=== PATIENT | female | born 1960 | race Caucasian/White ===

== ENCOUNTER 2018-04-15 11:08 | Emergency (ER) | payer OTHER, SELFPAY ==
[2018-04-15 11:10] VITALS: BP 205/121; PULSE 109; RESP 17; TEMP 37.2; O2SAT 95; BMI 34.9
[2018-04-15] MEDS: Ketorolac 60 MG/2 ML Vial IM (11:49)
[2018-04-15] MEDS: Orphenadrine 60 MG/2 ML Ampul IM (11:50)
[2018-04-15 12:45] VITALS: BP 222/103; PULSE 87; RESP 17; O2SAT 96
--- NOTE | 2018-04-15 12:46 | ED.VISSUMM ---
- ER Visit Summary Date of Service: 04/15/18 Chief Complaint: [back pain] History of Present Illness: The patient is a 57 F [that presents with right-sided back pain that radiates down the back of her right leg for approximately 1 week. She describes pain that is worse with movement and sitting and better with standing and remaining still. She denies any bowel or bladder incontinence or retention. No symptoms of saddle anesthesia. She denies any fall or trauma. She has a history of prior similar back pain. She does not take any blood thinning medications. She overall appears well and nontoxic. She has no other complaints.] Physical Examination: [General: The patient appears well and in no apparent distress. Patient is resting comfortably on cart. Skin: Warm, dry, no pallor noted. No rash. Head: Normocephalic, atraumatic Neck: Supple, nontender. Eye: PERRLA, EOMI Cardiovascular: Regular Rate and Rhythm, no gallups or rubs Respiratory: Patient is in no distress, no accessory muscle use, lungs are clear to auscultation, no wheezing, rales or rhonchi Musculoskeletal: normal ROM, no deformity, no tenderness, no swelling. 2+ radial and DP pulses symmetric. Back: No spinal tenderness. Right paraspinal lumbar tenderness only. GI: No tenderness to palpation, no masses appreciated. No rebound, guarding, or rigidity noted. Neurological: A&O, normal strength and sensation. 5/5 lower extremity strength intact. Sensation normal. Gait normal. Psychiatric: Cooperative] Test Results: [] Emergency Department Course and Treatment: [Patient was given intramuscular injections of Toradol and Norflex with improvement of symptoms. On reevaluation at 1225 is standing at bedside and states she feels improved. Neurological exam remains normal. Her blood pressure was elevated here at 225/121. This did improve on the diastolic portion while she was here in the emergency department. Patient admits that she forgot to take her blood pressure medications today and she took them today only right before she came in. She has no symptoms associated with her blood pressure here. She recently had her blood pressure medications adjusted as her physician is attempting to better control her blood pressure. She was advised to follow it closely today, she states she has machine at home. She was instructed to return with any new or worsening symptoms and follow closely with her primary provider regarding her back pain as well for her blood pressure. We discussed signs and symptoms to return with. Patient verbalized understanding. Patient discharged home in stable and improved condition.] Treatment Plan: [see above] Disposition: [discharge home, stable and improved condition] Impression: [Acute lumbosacral strain with radiculopathy, elevated blood pressure, history of HTN] This note was generated with i[employer] dictation software. It may contain incorrect words, spelling, and punctuation that were not noted in review of the chart prior to signing ED Disposition - Plan for ED Patient: Disposition: Home or Assisted Living Chief Complaint: Back Instructions: ED Sciatica Prescriptions: Cyclobenzaprine [Flexeril] 10 mg PO TID PRN #20 tab PRN Reason: Muscle Spasm Referrals: Remi Toth [Primary Care Provider] -
[2018-04-15 12:59] VITALS: PULSE 87; RESP 17; O2SAT 96
== END 2018-04-15 13:00 | disposition home or self-care (01) ==
PROVIDERS: Emergency Provider Emergency Medicine; Family Provider Family Medicine; PCP Family Medicine
DX: S39.012A Strain of muscle, fascia and tendon of lower back, initial encounter (principal); M54.16 Radiculopathy, lumbar region; X58.XXXA Exposure to other specified factors, initial encounter; Y93.9 Activity, unspecified; Y92.9 Unspecified place or not applicable; I10 Essential (primary) hypertension; E66.9 Obesity, unspecified; E11.9 Type 2 diabetes mellitus without complications; Z79.84 Long term (current) use of oral hypoglycemic drugs; Z79.899 Other long term (current) drug therapy; Z72.0 Tobacco use
CPT/HCPCS: 96372; 99282

== ENCOUNTER 2019-07-11 13:45 | Inpatient (IN) | payer OTHER, SELFPAY ==
[2019-07-11] VITALS (11 sets, daily range): BP systolic 111–160; BP diastolic 35–84; PULSE 102–124; RESP 14–32; TEMP 36.8–37.1; O2SAT 94–100; BMI 35.4; BMI 34.4
[2019-07-11] MEDS: Ipratropium/Albuterol Sulfate 3 ML AMPUL.NEB INHALATION ×3 (14:58→23:30)
[2019-07-11] MEDS: 0.9% Normal Saline 1,000 ML 1000 ML IV (15:50)
[2019-07-11] MEDS: Ondansetron 4 MG/2 ML Vial IV (15:50)
--- NOTE | 2019-07-11 15:55 | RAD_ITS ---
STUDY: X-RAY CHEST REASON FOR EXAM: Female, 58 years old. Productive cough. Fever. Nausea and diarrhea for 5 days. TECHNIQUE: PA and lateral views of the chest. COMPARISON: None. FINDINGS: The lungs are well-expanded. There is bilateral lower lobe infiltrates right greater than left. There is no demonstrated pleural abnormality. Normal size heart. Normal mediastinum and mirella. Normal visualized pulmonary arteries. There is atherosclerotic calcification of the aortic arch with tortuosity. There are diffuse degenerative changes of the visualized thoracic spine. There is degenerative osteoarthritis of the bilateral shoulders. There is no demonstrated abnormality of the visualized soft tissue structures of the upper abdomen. RAD/Chest PA and Lateral IMPRESSION: Bibasilar infiltrates. Electronically Signed: Musa Leyva DO at 16:15 EST Tel [phone], Service support ,
[2019-07-11 16:02] LABS: Absolute Lymphocyte Count 0.64 X10^3/uL (0.83-4.51); Absolute Neutrophil Count 4.9 X10^3/uL (2.0-7.7); Basophil# 0.02 X10^3/uL; Basophil% 0.3 % (0-1); Eosinophil# 0.02 X10^3/uL; Eosinophils% 0.3 % (0-5); Hematocrit 34.4 % (37-47); Hemoglobin 11.7 g/dL (12.0-15.0); Lymphocyte # 0.64 X10^3/ul (4.0); Lymphocyte % 10.9 % (19-41); Mean Corpuscular Hgb 30.2 pg (27.0-32.0); Mean Corpuscular Volume 88.9 fL (81-99); Mean Platelet Vol. 10.8 fl (6.2-12.0); Monocyte# 0.26 X10^3/uL; Monocyte% 4.4 % (0-10); NRBC Flagged by Analyzer 0 % (0-5); Neutrophil # 4.88 X10^3/uL (2.7-7.7); Neutrophil % 83.1 % (47-70); POSITIVE MORPHOLOGY YES; Platelet Count 175 K/mm3 (150-450); RBC Distribution Width CV 12.6 % (11.6-14.6); RBC Distribution Width SD 41.3 fl (35.1-43.9); Red Blood Count 3.87 M/mm3 (4.2-5.4); White Blood Count 5.9 K/mm3 (4.4-11.0)
[2019-07-11 16:20] LABS: Anion Gap 9 (5-15); BUN 43 mg/dL (7-18); BUN/Creat Ratio 45.9 RATIO (10-20); Calcium,Total 8.7 mg/dL (8.5-10.1); Chloride 95 mmol/L (98-107); Creatinine, Serum 0.94 mg/dL (0.55-1.02); EST Glomerular Filtration Rate 65 mL/min (>60); Est Glom Filt Rate - Afr Amer 79 mL/min (>60); Estimated Creatinine Clearance 52.22 ml/min; Glucose 238 mg/dL (74-106); Sodium Level 125 mmol/L (136-145)
[2019-07-11 16:30] LABS: Differential Indicated SCAN CRITERIA MET
--- NOTE | 2019-07-11 16:34 | ED.VISSUMM ---
- ER Visit Summary Date of Service: 07/11/19 Chief Complaint: [Shortness of breath] History of Present Illness: The patient is a 58 F [presents to the emergency department with 5-day history of shortness of breath. Patient's had chills and subjective fever. Patient is coughing and coughing up phlegm at times. Patient states that her mother is ill with similar symptoms. Patient describes decreased urine output and dark urine. Patient also has had nausea and dry heaves. She had a few episodes of diarrhea. Patient has history of diabetes, hypertension, high cholesterol.] Physical Examination: [HEENT-PERRLA, EOMI. Cranial nerves II through XII grossly intact. TMs clear. Mucous membranes dry. No adenopathy. Cardiovascular-regular rate and rhythm without murmur or ectopy Lungs-clear to auscultation, chest wall stable without crepitus or subcu emphysema Abdomen-normoactive bowel sounds, soft, nontender, no rebound or rigidity, no peritoneal signs. Extremities-intact ?4, normal range of motion, normal pulses, atraumatic] Test Results: [CBC with differential obtained showing a 5.9, hemoglobin 11.7, hematocrit 34, platelets 175. Chemistry showed a sodium 125, potassium 4.0, chloride 95, CO2 21, Leukos 238, BUN 43 and creatinine 0.94. Chest x-ray obtained showed bibasilar infiltrates as read by radiology and myself. Urinalysis ordered and pending. Lactate ordered and pending. Blood cultures ordered.] Emergency Department Course and Treatment: [Patient started on normal saline a liter bolus. Patient started on Rocephin and Zithromax IV.] Treatment Plan: [Admit] Disposition: [Admit] Impression: [Bilateral ocesdetbv-[id number]-resldzih Hyponatremia Dehydration] This note was generated with [employer].comation software. It may contain incorrect words, spelling, and punctuation that were not noted in review of the chart prior to signing ED Disposition - Plan for ED Patient: Referrals: Remi Toth [Primary Care Provider] -
--- NOTE | 2019-07-11 16:39 | PCM.HP.STD ---
History of Present Illness The patient is a 58 year old F [] Past Medical History Allergies No Known Allergies Allergy (Verified 07/11/19 13:47) Home Medications: Ambulatory Orders Medication Instructions Recorded Citalopram [Celexa] 10 mg PO DAILY 04/15/18 Diltiazem HCl [Cartia Xt] 180 mg PO DAILY 04/15/18 Glimepiride 1 mg PO DAILY 04/15/18 Lisinopril [Zestril] 20 mg PO BID 04/15/18 Metformin HCl [Glucophage Xr] 1,500 mg PO DAILY 04/15/18 Metoprolol Succinate 100 mg PO DAILY 04/15/18 Simvastatin [Zocor] 10 mg PO QHS 04/15/18 cycloBENZAPRine HCl [Flexeril] 10 mg PO TID PRN #20 tab 04/15/18 Smoking Status: Current every day smoker - Physical Exam Vitals/I&O's: Vital Signs Temp Pulse Resp BP Pulse Ox 98.7 F 107 H 18 155/84 H 96 07/11/19 13:46 07/11/19 14:59 07/11/19 14:59 07/11/19 13:46 07/11/19 13:46 Oxygen Delivery Method Room Air Weight: 194 lb Body Mass Index (BMI) 35.4 Microbiology Past 72 Hours 07/11/19 14:54 Mucosa - Nasopharyngeal Influenza Types A,B Direct FA (ROGE) - Final Laboratory Results 07/11/19 15:44: WBC 5.9, RBC 3.87 L, Hgb 11.7 L, Hct 34.4 L, MCV 88.9, MCH 30.2, MCHC 34.0, RDW Std Deviation 41.3, RDW Coeff of [place] 12.6, Plt Count 175, MPV 10.8, Immature Gran % (Auto) 1.000 H, Neut % (Auto) 83.1 H, Lymph % (Auto) 10.9 L, [place] % (Auto) 4.4, Eos % (Auto) 0.3, Baso % (Auto) 0.3, Absolute Neuts (auto) 4.9, Absolute Lymphs (auto) 0.64 L, Nucleated RBC % 0 07/11/19 15:44: Sodium 125 L, Potassium 4.0, Chloride 95 L, Carbon Dioxide 21.0, Anion Gap 9, BUN 43 H, Creatinine 0.94, Estim Creat Clear Calc 52.22, Est GFR (MDRD) Af Amer 79, Est GFR (MDRD) Non-Af 65, BUN/Creatinine Ratio 45.9 H, Glucose 238 H, Calcium 8.7 Current Medications Azithromycin 500 mg/ Dextrose 255 mls @ 250 mls/hr IV X1 ONE Stop: 07/11/19 17:14 Ceftriaxone Sodium (Rocephin) 1 gm in 50 mls @ 100 mls/hr IV X1 ONE Stop: 07/11/19 16:42
[2019-07-11 16:42] LABS: Bacteria 0 SEEN /hpf (None Seen); Mucous, Urine 0 SEEN /hpf (<or=2+); Red Blood Cells-Urine 0 SEEN /hpf (0-5); Squamous Epithelial Cells - UA 0 SEEN /hpf (5-10); White Blood Cells 0 SEEN /hpf (0-5)
[2019-07-11 16:49] LABS: Color, Urine Yellow (Yellow); Glucose, Dipstick Normal (Normal); Ketone-Dipstick 5 mg/dl (Negative); Leukocyte Esterase-Dipstick Negative /ul (Negative); Nitrite-Dipstick Negative (Negative); Occult Blood-Urine 25 /ul (Negative); Protein-Dipstick 30 mg/dl (Negative); Urine Bilirubin Dipstick Negative (Negative); Urine Clarity Sl. Cloudy (Clear); Urine Urobilinogen 1 mg/dl (Normal); Urine pH 6.5 (5.0 - 8.0)
[2019-07-11 16:53] LABS: Differential Comment SCANNED
--- NOTE | 2019-07-11 17:05 | PCM.HP.STD ---
<Hermila Acuna - Last Filed: 07/11/19 17:36> Problem List (1) HTN (hypertension) Status: Chronic (2) Tobacco dependence Status: Chronic (3) HLD (hyperlipidemia) Status: Chronic (4) Type 2 diabetes mellitus Status: Chronic (5) Depression Status: Chronic History of Present Illness Date of Admission: 07/11/19 Chief Complaint: Shortness of breath, cough, fever/chills. The patient is a 58 year old F who presents to the ER with complaints of shortness of breath, cough, fever and chills. Patient states her symptoms began with fever, chills on Sunday and also reports nasal congestion. She has felt progressively worse since that time. She reports intermittent non-productive cough. Denies sick contacts. She has a 25+ history of smoking and is a current pack per day smoker. She has never been tested for COPD. Patient also reports diarrhea prior to admission and nausea which are currently resolved. She has a past medical history of Type 2 diabetes mellitus, hypertension, hyperlipidemia, depression, tobacco dependence. Past Medical History Past Medical History (Chronic Problems): Chronic Problems HTN (hypertension) (Chronic) Tobacco dependence (Chronic) HLD (hyperlipidemia) (Chronic) Type 2 diabetes mellitus (Chronic) Depression (Chronic) Allergies No Known Allergies Allergy (Verified 07/11/19 13:47) Home Medications: Ambulatory Orders Medication Instructions Recorded Citalopram [Celexa] 10 mg PO DAILY 04/15/18 Metformin HCl [Glucophage Xr] 1,500 mg PO DAILY 04/15/18 Simvastatin [Zocor] 10 mg PO QHS 04/15/18 Aspirin E.C. 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 Denies: Head Aches, Sinus Congestion, Sinus Drainage, Sore Throat Cardiovascular: Denies: Chest Pain, Edema, Light Headedness, Palpitations, Syncope Respiratory: Reports: Cough, Shortness of Breath. Denies: Sputum production Gastrointestinal: Reports: Diarrhea, Nausea. Denies: Abdominal Pain, Vomiting Genitourinary: Denies: Dysuria Musculoskeletal: Denies: Joint Pain, Joint Tenderness Skin: Denies: Rash, Wounds Neurological: Denies: Numbness, Tingling, Focal weakness Psychiatric: Reports: Depression Hematologic/ Lymphatic: Denies: Easy Bruising, Easy Bleeding VTE Information - Inpt Only VTE Present on Admission: No VTE Mechan Device Prophylaxis: None VTE Pharm Prophylaxis ordered?: Yes - Physical Exam Vitals/I&O's: Vital Signs Temp Pulse Resp BP Pulse Ox 98.7 F 102 H 14 129/59 H 95 07/11/19 13:46 07/11/19 16:47 07/11/19 16:47 07/11/19 16:47 07/11/19 16:47 Oxygen Delivery Method Room Air Weight: 194 lb Body Mass Index (BMI) 35.4 General: Alert, Oriented x3, Cooperative HEENT: Atraumatic, PERRLA, EOMI, Normocephalic Oral: Dry Mucosa Neck: Supple, No JVD, Negative Carotid Bruits Lungs: Diminished, - - Crackles BL bases Cardiovascular: Regular Rhythm, Normal S1, Normal S2, No murmurs, Tachycardic Abdomen: Bowel Sounds Present, Soft, Non Tender, Non-Distended, Obese Extremities: No clubbing, No cyanosis, No edema, Capillary Refill Less than 3 Seconds Skin: No rashes, No breakdown Musculoskeletal: No Tenderness to Palpation of Joints or Extremities Neurological: Cranial nerves II-XII grossly intact, Neuro grossly intact Psych/Mental Status: Normal Affect, Appropriate Microbiology Past 72 Hours 07/11/19 14:54 Mucosa - Nasopharyngeal Influenza Types A,B Direct FA (ROGE) - Final Laboratory Results 07/11/19 15:44: WBC 5.9, RBC 3.87 L, Hgb 11.7 L, Hct 34.4 L, MCV 88.9, MCH 30.2, MCHC 34.0, RDW Std Deviation 41.3, RDW Coeff of [place] 12.6, Plt Count 175, MPV 10.8, Immature Gran % (Auto) 1.000 H, Neut % (Auto) 83.1 H, Lymph % (Auto) 10.9 L, [place] % (Auto) 4.4, Eos % (Auto) 0.3, Baso % (Auto) 0.3, Absolute Neuts (auto) 4.9, Absolute Lymphs (auto) 0.64 L, Nucleated RBC % 0, Differential Comment SCANNED 07/11/19 15:44: Sodium 125 L, Potassium 4.0, Chloride 95 L, Carbon Dioxide 21.0, Anion Gap 9, BUN 43 H, Creatinine 0.94, Estim Creat Clear Calc 52.22, Est GFR (MDRD) Af Amer 79, Est GFR (MDRD) Non-Af 65, BUN/Creatinine Ratio 45.9 H, Glucose 238 H, Calcium 8.7 07/11/19 16:30: Urine Color Pending, Urine Clarity Pending, Urine pH Pending, Ur Specific [place] Pending, Urine Protein Pending, Urine Glucose (UA) Pending, Urine Ketones Pending, Urine Occult Blood Pending, Urine Nitrite Pending, Urine Bilirubin Pending, Urine Urobilinogen Pending, Ur Leukocyte Esterase Pending, Urine RBC Pending, Urine WBC Pending, Ur Squamous Epith Cells Pending, Urine Bacteria Pending, Urine Mucus Pending 07/11/19 16:40: Lactic Acid Pending Current Medications Azithromycin 500 mg/ Dextrose 255 mls @ 250 mls/hr IV X1 ONE Stop: 07/11/19 17:14 Assessment/Plan 1. Sepsis secondary to bilateral community acquired pneumonia- CXR with BL infiltrates. Afebrile. No white count. O2 stable on RA. Tachycardic and tachypneic on admission. Lactic acid pending. Continue IV azithromycin and IV Rocephin. Check urine antigens. Send sputum for culture. Albuterol and DuoNeb aerosols. Patient has extensive smoking history. Suspect underlying COPD. Recommend follow up with pulmonary medicine at [place] for formal evaluation. 2. Hypovolemic hyponatremia, secondary to dehydration- IV fluids, trend BMP. 3. Type 2 diabetes mellitus- hold oral regimen. Accucheck ACHS with SSI. Glucose elevated on admission. Check HA1C. 4. Hypertension-stable, continue lisinopril, metoprolol. Hold HCTZ. 5. Hyperlipidemia- continue statin. 6. Depression- continue celexa. 7. Tobacco dependence- encouraged cessation. Nicotine replacement patch. DVT prophylaxis- Lovenox sc This patient was seen by JULIO Hyman under the supervision of Dr. English. <Na English Kaelyn - Last Filed: 07/11/19 18:46> History of Present Illness The patient is a 58 year old F [] Past Medical History Allergies No Known Allergies Allergy (Verified 07/11/19 13:47) - Physical Exam Vitals/I&O's: Vital Signs Temp Pulse Resp BP Pulse Ox 98.2 F 115 H 28 H 160/65 H 100 07/11/19 17:56 07/11/19 17:56 07/11/19 17:56 07/11/19 17:56 07/11/19 17:56 Oxygen Delivery Method Room Air Weight: 188 lb 3.2 oz Body Mass Index (BMI) 34.4 Intake and Output for Last 24 Hours 07/09/19 07/10/19 07/11/19 23:59 23:59 23:59 Intake Total 50 / 50 Balance 50 / 50 Microbiology Past 72 Hours 07/11/19 14:54 Mucosa - Nasopharyngeal Influenza Types A,B Direct FA (ROGE) - Final Laboratory Results 07/11/19 15:44: WBC 5.9, RBC 3.87 L, Hgb 11.7 L, Hct 34.4 L, MCV 88.9, MCH 30.2, MCHC 34.0, RDW Std Deviation 41.3, RDW Coeff of [place] 12.6, Plt Count 175, MPV 10.8, Immature Gran % (Auto) 1.000 H, Neut % (Auto) 83.1 H, Lymph % (Auto) 10.9 L, [place] % (Auto) 4.4, Eos % (Auto) 0.3, Baso % (Auto) 0.3, Absolute Neuts (auto) 4.9, Absolute Lymphs (auto) 0.64 L, Nucleated RBC % 0, Differential Comment SCANNED 07/11/19 15:44: Sodium 125 L, Potassium 4.0, Chloride 95 L, Carbon Dioxide 21.0, Anion Gap 9, BUN 43 H, Creatinine 0.94, Estim Creat Clear Calc 52.22, Est GFR (MDRD) Af Amer 79, Est GFR (MDRD) Non-Af 65, BUN/Creatinine Ratio 45.9 H, Glucose 238 H, Calcium 8.7 07/11/19 15:44: Hemoglobin A1c Pending 07/11/19 16:30: Urine Color Yellow, Urine Clarity Sl. Cloudy, Urine pH 6.5, Ur Specific [place] 1.010, Urine Protein 30 H, Urine Glucose (UA) Normal, Urine Ketones 5 H, Urine Occult Blood 25 H, Urine Nitrite Negative, Urine Bilirubin Negative, Urine Urobilinogen 1 H, Ur Leukocyte Esterase Negative, Urine RBC 0 SEEN, Urine WBC 0 SEEN, Ur Squamous Epith Cells 0 SEEN, Urine Bacteria 0 SEEN, Urine Mucus 0 SEEN 07/11/19 16:40: Lactic Acid 3.3 H* 07/11/19 18:18: POC Glucose 217 H Current Medications Acetaminophen (Tylenol) 650 mg PO Q6H PRN PRN PRN Reason: Pain Score 1-3/Temp > 100.7 F Albuterol Sulfate (Ventolin Aerosols) 2.5 mg INHALATION Q2H PRN PRN PRN Reason: SOB/Wheezing Albuterol/Ipratropium (Duoneb) 3 ml INHALATION Q4H.RT [facility] Aspirin (Ecotrin) 81 mg PO DAILY@0800 [facility] Atorvastatin Calcium (Lipitor) 5 mg PO QHS [facility] Citalopram Hydrobromide (Celexa) 10 mg PO DAILY [facility] Dextrose (D50w Syringe) 0 gm IV X1 PRN; Protocol PRN Reason: Hypoglycemia Enoxaparin Sodium (Lovenox) 40 mg SC DAILY [facility] Glimepiride (Amaryl) 4 mg PO DAILYCM [facility] Glucagon () 1 mg IM .X1 PRN PRN Reason: Hypoglycemia Guaifenesin (Robitussin) 20 ml PO Q4H PRN PRN PRN Reason: COUGH Azithromycin 500 mg/ Dextrose 255 mls @ 250 mls/hr IV Q24 [facility] Stop: 07/17/19 10:01 Ceftriaxone Sodium 2 gm/ (Sodium Chloride) 50 mls @ 100 mls/hr IV Q24 [facility] Stop: 07/19/19 10:01 Sodium Chloride () 1,000 mls @ 150 mls/hr IV .Q6H40M [facility] Insulin Human Lispro (Humalog Kwikpen (Bkc)) 0 unit SC ACHS [place]; Protocol Lisinopril (Zestril) 40 mg PO DAILY [facility] Metoprolol Succinate (Toprol Xl (Beta Yi)) 200 mg PO DAILY [facility] Nicotine (Nicoderm Cq (Pbkc)) 14 mg TRANSDERM. DAILY [facility] Nutritional Formula (Lactose Free) (Glucerna Shake) 120 ml PO 4X/DAY [place] Ondansetron HCl (Zofran) 4 mg IV Q8H PRN PRN PRN Reason: NAUSEA/VOMITING Sodium Chloride () 10 - 40 ml IV UD PRN PRN Reason: SALINE FLUSH Assessment/Plan Patient seen by Hermila Acuna NP-C under my supervision Patient was admitted via the ED on 07/11/19 with a complaint of shortness of breath and a productive cough. She denied any associated fever or chills but admitted to pleuritic chest pain. She also complained of nasal congestion and says symptoms have been going on for about 4 days prior to admission. Patient has a history of smoking and smokes about a pack daily but states she has not smoked since Sunday when the symptoms started. Review of symptoms otherwise negative. Vitals in the ED was significant for heart rate of 115 respiratory rate of 28 with temperature of 98.2 Fahrenheit. Chemistry showed sodium of 125 and lactic acid which was subsequently checked came back to be 3.3. CBC showed no leukocytosis. Chest x-ray showed evidence of bilateral basilar infiltrates. She has been admitted to be managed for sepsis due to bilateral pneumonia. o/e: Vital Signs Height 5 ft 2 in Weight: 188 lb 3.2 oz Weight in Pounds 188.2 lbs Pulse Ox 100 Temperature 98.2 F Pulse Rate 115 Respiratory Rate 28 Blood Pressure 160/65 Blood Pressure Position Semi-Fowlers General: Alert, Oriented x3, Cooperative HEENT: Atraumatic, PERRLA, EOMI, Normocephalic Oral: Dry Mucosa Neck: Supple, No JVD, Negative Carotid Bruits Lungs: Diminished breath sounds bibasally, no wheezes or crackles. Cardiovascular: Regular Rhythm, Normal S1, Normal S2, No murmurs, Tachycardic Abdomen: Bowel Sounds Present, Soft, Non Tender, Non-Distended, Obese Extremities: No clubbing, No cyanosis, No edema, Capillary Refill Less than 3 Seconds Skin: No rashes, No breakdown Musculoskeletal: No Tenderness to Palpation of Joints or Extremities Neurological: Cranial nerves II-XII grossly intact, Neuro grossly intact Psych/Mental Status: Normal Affect, Appropriate Plan is to start patient on IV ceftriaxone and azithromycin for sepsis due to bilateral community-acquired pneumonia. Blood cultures and sputum culture ordered. Urine for strep and Legionella antigen also ordered. Will check respiratory panel. Titrate oxygen to maintain saturation above 90%. We will give breathing treatments as well. Hydrate with IV fluid normal saline for hyponatremia of 125. Hyponatremia is likely due to dehydration as patient has not been eating and drinking well. Not, no baseline sodium level is known. Continue glimepiride and metformin for diabetes. Check lactic acid as per protocol. Rest of management as per JULIO Hyman's notes which I have reviewed and endorsed. Code Visit Inpatient E&M: 44861 Init Hosp L3
[2019-07-11] MEDS: Ceftriaxone 1 GM/50 ML BAG IV (17:24)
[2019-07-11 17:56] LABS: Lactic Acid 3.3 mmol/L (0.4-1.9)
[2019-07-11 18:26] LABS: Bedside Glucose 217 mg/dL (70-110)
[2019-07-11] MEDS: 0.9% Normal Saline 1,000 ML 150 ML IV (18:47)
[2019-07-11 18:48] LABS: Hemoglobin A1c 8.9 % (4.2-6.3)
[2019-07-11 20:41] LABS: Reflex Lactate? Y
[2019-07-11 21:20] LABS: Bedside Glucose 243 mg/dL (70-110)
[2019-07-11] MEDS: Glucerna Shake 120 ML LIQUID PO (21:23)
[2019-07-11] MEDS: Atorvastatin Calcium 10 MG Tablet 5 MG PO (21:23)
[2019-07-11] MEDS: Insulin Lispro 100 UNIT/ML INSULN.PEN SC (21:24)
[2019-07-11] MEDS: Acetaminophen 325 MG Tablet 650 MG PO (23:56)
[2019-07-12] VITALS (20 sets, daily range): BP systolic 120–157; BP diastolic 49–89; PULSE 81–119; RESP 18–32; TEMP 36.6–37.1; O2SAT 92–97
[2019-07-12] MEDS: 0.9% Normal Saline 1,000 ML 150 ML IV ×4 (01:10→20:49)
[2019-07-12] MEDS: guaiFENesin 10 ML UDC (200MG/10ML) 20 ML PO (01:10)
[2019-07-12] MEDS: Ipratropium/Albuterol Sulfate 3 ML AMPUL.NEB INHALATION ×5 (03:20→22:57)
[2019-07-12 06:30] LABS: Anion Gap 10 (5-15); BUN 16 mg/dL (7-18); BUN/Creat Ratio 27.7 RATIO (10-20); Calcium,Total 8.1 mg/dL (8.5-10.1); Chloride 101 mmol/L (98-107); Creatinine, Serum 0.58 mg/dL (0.55-1.02); EST Glomerular Filtration Rate 114 mL/min (>60); Est Glom Filt Rate - Afr Amer 138 mL/min (>60); Estimated Creatinine Clearance 84.64 ml/min; Glucose 265 mg/dL (74-106); Potassium 3.9 mmol/L (3.5-5.1); Sodium Level 129 mmol/L (136-145)
[2019-07-12] MEDS: Insulin Lispro 100 UNIT/ML INSULN.PEN SC ×4 (06:50→21:20)
[2019-07-12 06:55] LABS: Bedside Glucose 269 mg/dL (70-110)
[2019-07-12] MEDS: Glimepiride 4 MG Tablet PO (08:16)
[2019-07-12] MEDS: Acetaminophen 325 MG Tablet 650 MG PO ×3 (08:16→20:47)
[2019-07-12] MEDS: Aspirin E.C. 81 MG Tablet PO (08:16)
[2019-07-12] MEDS: Citalopram 10 MG Tablet PO (09:27)
[2019-07-12] MEDS: Enoxaparin 40 MG/0.4 ML Syringe SC (09:27)
[2019-07-12] MEDS: Metoprolol(XL)Succ 200 MG Tablet PO (09:28)
[2019-07-12] MEDS: Lisinopril 40 MG Tablet PO (09:28)
[2019-07-12] MEDS: Glucerna Shake 120 ML LIQUID PO ×4 (09:30→21:09)
[2019-07-12 12:06] LABS: Bedside Glucose 296 mg/dL (70-110)
--- NOTE | 2019-07-12 12:33 | NURSING ---
This nurse reviewed charting of SN Marita
--- NOTE | 2019-07-12 12:57 | NURSING ---
Reported off to primary nurse.
--- NOTE | 2019-07-12 13:27 | PN_ITS ---
<Hermila Acuna - Last Filed: 07/12/19 13:31> Subjective: Patient seen and examined. Reports no significant improvement in breathing. No productive cough. Denies fever, chills. - Physical Exam Vitals/I&O's: Vital Signs Temp Pulse Resp BP Pulse Ox 98.1 F 99 20 H 134/55 H 97 07/12/19 09:40 07/12/19 11:17 07/12/19 11:17 07/12/19 09:40 07/12/19 09:40 Oxygen Delivery Method Room Air Weight: 188 lb 3.2 oz Body Mass Index (BMI) 34.4 Intake and Output for Last 24 Hours 07/10/19 07/11/19 07/12/19 23:59 23:59 23:59 Intake Total 1545 / 1905 3425.0 / 3425.0 Output Total 1850 / 1850 Balance 1545 / 1355 1575.0 / 1575.0 General: Alert, Oriented x3, Cooperative HEENT: Atraumatic, PERRLA, EOMI, Normocephalic Oral: Dry Mucosa Neck: Supple, No JVD, Negative Carotid Bruits Lungs: Diminished, Rhonchi, Tachypneic, Wheezes Cardiovascular: Regular rate, Regular Rhythm, Normal S1, Normal S2, No murmurs Abdomen: Bowel Sounds Present, Soft, Non Tender, Non-Distended Extremities: No clubbing, No cyanosis, No edema, Capillary Refill Less than 3 Seconds Skin: No rashes, No breakdown Musculoskeletal: No Tenderness to Palpation of Joints or Extremities Neurological: Cranial nerves II-XII grossly intact, Neuro grossly intact Psych/Mental Status: Normal Affect, Appropriate Microbiology Past 72 Hours 07/11/19 23:40 Mucosa - Nasopharyngeal Respiratory Panel (PCR) - Final 07/11/19 23:23 Urine, Clean Catch Legionella Antigen - Final 07/11/19 23:23 Urine, Clean Catch Streptococcus pneumoniae Antigen (M - Final Streptococcus pneumonia Ag 07/11/19 14:54 Mucosa - Nasopharyngeal Influenza Types A,B Direct FA (ROGE) - Final Laboratory Results 07/11/19 15:44: WBC 5.9, RBC 3.87 L, Hgb 11.7 L, Hct 34.4 L, MCV 88.9, MCH 30.2, MCHC 34.0, RDW Std Deviation 41.3, RDW Coeff of [place] 12.6, Plt Count 175, MPV 10.8, Immature Gran % (Auto) 1.000 H, Neut % (Auto) 83.1 H, Lymph % (Auto) 10.9 L, [place] % (Auto) 4.4, Eos % (Auto) 0.3, Baso % (Auto) 0.3, Absolute Neuts (auto) 4.9, Absolute Lymphs (auto) 0.64 L, Nucleated RBC % 0, Differential Comment SCANNED 07/11/19 15:44: Sodium 125 L, Potassium 4.0, Chloride 95 L, Carbon Dioxide 21.0, Anion Gap 9, BUN 43 H, Creatinine 0.94, Estim Creat Clear Calc 52.22, Est GFR (MDRD) Af Amer 79, Est GFR (MDRD) Non-Af 65, BUN/Creatinine Ratio 45.9 H, Glucose 238 H, Calcium 8.7 07/11/19 15:44: Hemoglobin A1c 8.9 H 07/11/19 16:30: Urine Color Yellow, Urine Clarity Sl. Cloudy, Urine pH 6.5, Ur Specific [place] 1.010, Urine Protein 30 H, Urine Glucose (UA) Normal, Urine Ketones 5 H, Urine Occult Blood 25 H, Urine Nitrite Negative, Urine Bilirubin Negative, Urine Urobilinogen 1 H, Ur Leukocyte Esterase Negative, Urine RBC 0 SEEN, Urine WBC 0 SEEN, Ur Squamous Epith Cells 0 SEEN, Urine Bacteria 0 SEEN, Urine Mucus 0 SEEN 07/11/19 16:40: Lactic Acid 3.3 H* 07/11/19 18:18: POC Glucose 217 H 07/11/19 21:00: Lactic Acid 2.0 07/11/19 21:15: POC Glucose 243 H 07/12/19 05:56: Sodium 129 L, Potassium 3.9, Chloride 101, Carbon Dioxide 18.0 L , Anion Gap 10, BUN 16, Creatinine 0.58, Estim Creat Clear Calc 84.64, Est GFR (MDRD) Af Amer 138, Est GFR (MDRD) Non-Af 114, BUN/Creatinine Ratio 27.7 H, Glucose 265 H, Calcium 8.1 L 07/12/19 06:50: POC Glucose 269 H 07/12/19 11:31: POC Glucose 296 H Current Medications Acetaminophen (Tylenol) 650 mg PO Q6H PRN PRN PRN Reason: Pain Score 1-3/Temp > 100.7 F Last Admin: 07/12/19 08:16 Dose: 650 mg Documented by: Albuterol Sulfate (Ventolin Aerosols) 2.5 mg INHALATION Q2H PRN PRN PRN Reason: SOB/Wheezing Albuterol/Ipratropium (Duoneb) 3 ml INHALATION Q4H.RT [facility] Last Admin: 07/12/19 11:00 Dose: 3 ml Documented by: Aspirin (Ecotrin) 81 mg PO DAILY@0800 [facility] Last Admin: 07/12/19 08:16 Dose: 81 mg Documented by: Atorvastatin Calcium (Lipitor) 5 mg PO QHS [facility] Last Admin: 07/11/19 21:23 Dose: 5 mg Documented by: Citalopram Hydrobromide (Celexa) 10 mg PO DAILY [facility] Last Admin: 07/12/19 09:27 Dose: 10 mg Documented by: Dextrose (D50w Syringe) 0 gm IV X1 PRN; Protocol PRN Reason: Hypoglycemia Enoxaparin Sodium (Lovenox) 40 mg SC DAILY [facility] Last Admin: 07/12/19 09:27 Dose: 40 mg Documented by: Glimepiride (Amaryl) 4 mg PO DAILYCM [facility] Last Admin: 07/12/19 08:16 Dose: 4 mg Documented by: Glucagon () 1 mg IM .X1 PRN PRN Reason: Hypoglycemia Guaifenesin (Robitussin) 20 ml PO Q4H PRN PRN PRN Reason: COUGH Last Admin: 07/12/19 01:10 Dose: 20 ml Documented by: Azithromycin 500 mg/ Dextrose 255 mls @ 250 mls/hr IV Q24 [facility] Stop: 07/17/19 10:01 Last Infusion: 07/12/19 11:33 Dose: Infused Documented by: Ceftriaxone Sodium 2 gm/ (Sodium Chloride) 50 mls @ 100 mls/hr IV Q24 [facility] Stop: 07/19/19 10:01 Last Infusion: 07/12/19 09:56 Dose: Infused Documented by: Sodium Chloride () 1,000 mls @ 150 mls/hr IV .Q6H40M [facility] Last Infusion: 07/12/19 12:00 Dose: 150 mls/hr Documented by: Insulin Human Lispro (Humalog Kwikpen (Bkc)) 0 unit SC ACHS [facility]; Protocol Last Admin: 07/12/19 11:38 Dose: 6 units Documented by: Lisinopril (Zestril) 40 mg PO DAILY [facility] Last Admin: 07/12/19 09:28 Dose: 40 mg Documented by: Metoprolol Succinate (Toprol Xl (Beta Yi)) 200 mg PO DAILY [facility] Last Admin: 07/12/19 09:28 Dose: 200 mg Documented by: Nicotine (Nicoderm Cq (Pbkc)) 14 mg TRANSDERM. DAILY [facility] Last Admin: 07/12/19 09:26 Dose: Not Given Documented by: Nutritional Formula (Lactose Free) (Glucerna Shake) 120 ml PO 4X/DAY [facility] Last Admin: 07/12/19 09:30 Dose: 120 ml Documented by: Ondansetron HCl (Zofran) 4 mg IV Q8H PRN PRN PRN Reason: NAUSEA/VOMITING Sodium Chloride () 10 - 40 ml IV UD PRN PRN Reason: SALINE FLUSH Medical Necessity - Tobacco Use Smoking Status: Current every day smoker Tobacco Use: Cigarettes Assessment/Plan 1. Sepsis secondary to bilateral strep pneumo community-acquired pneumonia- CXR with BL infiltrates. Afebrile. No white count. O2 stable on RA. Tachycardic and tachypneic on admission. Lactic acid 3.3 on admission, repeat normal. Continue IV azithromycin and IV Rocephin. Check urine antigens. Send sputum for culture. Albuterol and DuoNeb aerosols. Patient has extensive smoking history. Suspect underlying COPD. Recommend follow up with pulmonary medicine at [facility] for formal evaluation. Add low-dose IV steroid given wheezing on assessment. Respiratory panel negative. 2. Hypovolemic hyponatremia, secondary to dehydration-improving with IV fluids, trend BMP. 3. Type 2 diabetes mellitus- hold oral regimen. Accucheck ACHS with SSI. Glucose elevated on admission. Hemoglobin A1c 8.9%. 4. Hypertension-stable, continue lisinopril, metoprolol. Hold HCTZ. 5. Hyperlipidemia- continue statin. 6. Depression- continue celexa. 7. Tobacco dependence- encouraged cessation. Nicotine replacement patch. DVT prophylaxis- Lovenox sc This patient was seen by JULIO Hyman under the supervision of Dr. Santos. <Ace Santos - Last Filed: 07/13/19 15:12> Subjective: Patient is still has mild shortness of breath, occasional chest pain on deep coughing. Patient has history of smoking and not to smoke since admission. No fever or chills. - Physical Exam Vitals/I&O's: Vital Signs Temp Pulse Resp BP Pulse Ox 97.3 F L 88 18 160/92 H 94 07/13/19 13:05 07/13/19 13:05 07/13/19 13:05 07/13/19 13:05 07/13/19 13:05 Oxygen Delivery Method Room Air Weight: 188 lb 3.2 oz Body Mass Index (BMI) 34.4 Intake and Output for Last 24 Hours 07/11/19 07/12/19 07/13/19 23:59 23:59 23:59 Intake Total 1545 / 1905 5182.5 / 5182.5 3320 / 3320 Output Total 2440 / 2440 300 / 300 Balance 1545 / 1355 2742.5 / 2742.5 3020 / 3020 General: Alert, Oriented x3, Cooperative HEENT: Atraumatic, PERRLA, EOMI, Normocephalic Neck: Supple, No JVD, Negative Carotid Bruits Lungs: Diminished - Air entry diminished in bilateral lung bases., Rhonchi, Tachypneic, Wheezes Cardiovascular: Regular rate, Regular Rhythm, Normal S1, Normal S2, No murmurs Abdomen: Bowel Sounds Present, Soft, Non Tender Extremities: No edema, Capillary Refill Less than 3 Seconds Skin: No rashes, No breakdown Musculoskeletal: No Tenderness to Palpation of Joints or Extremities, Arthritic Changes Neurological: Cranial nerves II-XII grossly intact, Deep Tendon Reflexes 2+/4 and Symmetrical, Neuro grossly intact Psych/Mental Status: Normal Affect, Appropriate Microbiology Past 72 Hours 07/11/19 23:40 Mucosa - Nasopharyngeal Respiratory Panel (PCR) - Final 07/11/19 23:23 Urine, Clean Catch Legionella Antigen - Final 07/11/19 23:23 Urine, Clean Catch Streptococcus pneumoniae Antigen (M - Final Streptococcus pneumonia Ag 07/11/19 14:54 Mucosa - Nasopharyngeal Influenza Types A,B Direct FA (ROGE) - Final Laboratory Results 07/12/19 15:51: POC Glucose 285 H 07/12/19 21:18: POC Glucose 300 H 07/13/19 06:10: Sodium 130 L, Potassium 3.5, Chloride 100, Carbon Dioxide 19.0 L , Anion Gap 11, BUN 25 H, Creatinine 0.54 L, Estim Creat Clear Calc 90.91, Est GFR (MDRD) Af Amer 149, Est GFR (MDRD) Non-Af 123, BUN/Creatinine Ratio 46.2 H, Glucose 328 H, Calcium 8.3 L 07/13/19 06:42: POC Glucose 329 H 07/13/19 10:34: POC Glucose 334 H Assessment/Plan This patient was seen in conjunction with Hermila PORTER. I have independently interviewed and examined the patient and reviewed pertinent history, examination findings, laboratory and plan of management. I have reviewed the note and agree with the documented findings with the few additional points. In brief, patient is a 58-year-old female with history of chronic smoking was admitted with cough, bilateral pleuritic chest pain and shortness of breath for 4 days prior to admission. Chest x-ray shows bilateral lower lobe infiltrates. Patient was tachypneic and tachycardic, lactic acid 3.3 on admission. Patient is on IV ceftriaxone and Zithromax. Pneumonia work-up. On bronchodilator. It seems patient has possible undiagnosed COPD with extensive smoking history. Patient also had hypotonic hypovolemic hyponatremia and is on normal saline. Other comorbidities as mentioned above I have discussed my assessment with Hermila PORTER and orders have been reviewed. Code Visit Inpatient E&M: 52340 Subs Hosp L2
--- NOTE | 2019-07-12 15:28 | CM.UR ---
Attempted to see the patient at this time however she is sleeping. David Watson RN, CCM.
[2019-07-12 16:06] LABS: Bedside Glucose 285 mg/dL (70-110)
[2019-07-12] MEDS: Atorvastatin Calcium 10 MG Tablet 5 MG PO (21:13)
[2019-07-12 21:45] LABS: Bedside Glucose 300 mg/dL (70-110)
[2019-07-13] VITALS (10 sets, daily range): BP systolic 137–160; BP diastolic 74–92; PULSE 67–88; RESP 16–22; TEMP 36.3–36.6; O2SAT 93–97
[2019-07-13] MEDS: 0.9% Normal Saline 1,000 ML 150 ML IV ×2 (03:05→10:02)
[2019-07-13] MEDS: Acetaminophen 325 MG Tablet 650 MG PO ×2 (03:05→10:38)
[2019-07-13] MEDS: Ipratropium/Albuterol Sulfate 3 ML AMPUL.NEB INHALATION ×3 (03:15→11:49)
[2019-07-13] MEDS: Insulin Lispro 100 UNIT/ML INSULN.PEN SC ×2 (06:45→10:37)
[2019-07-13 07:10] LABS: Bedside Glucose 329 mg/dL (70-110)
[2019-07-13 07:24] LABS: Anion Gap 11 (5-15); BUN 25 mg/dL (7-18); BUN/Creat Ratio 46.2 RATIO (10-20); Calcium,Total 8.3 mg/dL (8.5-10.1); Chloride 100 mmol/L (98-107); Creatinine, Serum 0.54 mg/dL (0.55-1.02); EST Glomerular Filtration Rate 123 mL/min (>60); Est Glom Filt Rate - Afr Amer 149 mL/min (>60); Estimated Creatinine Clearance 90.91 ml/min; Glucose 328 mg/dL (74-106); Potassium 3.5 mmol/L (3.5-5.1); Sodium Level 130 mmol/L (136-145)
[2019-07-13] MEDS: Glimepiride 4 MG Tablet PO (08:32)
[2019-07-13] MEDS: Aspirin E.C. 81 MG Tablet PO (08:32)
[2019-07-13] MEDS: Enoxaparin 40 MG/0.4 ML Syringe SC (08:33)
[2019-07-13] MEDS: Citalopram 10 MG Tablet PO (08:33)
[2019-07-13] MEDS: Metoprolol(XL)Succ 200 MG Tablet PO (08:34)
[2019-07-13] MEDS: Lisinopril 40 MG Tablet PO (08:34)
[2019-07-13 10:45] LABS: Bedside Glucose 334 mg/dL (70-110)
--- NOTE | 2019-07-13 13:23 | DCINST_ITS ---
- Discharge Diagnoses Current Active Problems: Current Active and Chronic Problems HTN (hypertension) (Chronic) Tobacco dependence (Chronic) HLD (hyperlipidemia) (Chronic) Type 2 diabetes mellitus (Chronic) Depression (Chronic) You will use the following diet at home:: Calorie/Carbohydrate Controlled (specify 1200, 1400, etc), Cardiac Discharge Activity: Return to Normal Activity Call your doctor if you observe: Shortness of breath, Dizziness, Fainting spells, Chest pain Allergies/Adverse Reactions: Allergies No Known Allergies Allergy (Verified 07/11/19 13:47) Medications to take at Discharge Citalopram [Celexa] 10 mg PO DAILY 04/15/18 Metformin HCl [Glucophage Xr] 1,500 mg PO DAILY 04/15/18 Simvastatin [Zocor] 10 mg PO QHS 04/15/18 Aspirin E.C. [Ecotrin] 81 mg PO DAILY@0800 07/11/19 Glimepiride 4 mg PO DAILY 07/11/19 Hydrochlorothiazide [Hctz] 25 mg PO DAILY 07/11/19 Lisinopril 40 mg PO DAILY 07/11/19 Metoprolol Succinate [Toprol Xl] 100 mg PO DAILY 07/11/19 Metoprolol Succinate [Toprol Xl] 200 mg PO DAILY 07/11/19 Albuterol Inhaler [Ventolin Hfa] 1 - 2 puff INHALATION Q4H PRN PRN #1 inhaler 07/13/19 Amox/Clavulanate Tablet [Augmentin Tablet] 875 mg PO Q12H #14 tab 07/13/19 Prednisone 40 mg PO DAILY 5 Days #10 tab 07/13/19 The following prescriptions were given: Amox/Clavulanate Tablet [Augmentin Tablet] 875 mg PO Q12H #14 tab Transmission Status: Pending to [id number] Prednisone 40 mg PO DAILY 5 Days #10 tab Transmission Status: Pending to [id number] Albuterol Inhaler [Ventolin Hfa] 1 - 2 puff INHALATION Q4H PRN PRN #1 inhaler PRN Reason: Shortness Of Breath Transmission Status: Pending to [id number] Primary Care Physician: Remi Toth [Primary Care Provider] - Please follow up with your Primary Care Physician in: 1 Week Test Results: Test results from this visit will be discussed in further detail at your follow- up appointment, if applicable. Please Follow Up With: Chavez Solorzano MD - Or Dr. Monique When: Call to establish with pulmonary medicine
--- NOTE | 2019-07-13 13:25 | DS.PCM_ITS ---
<Hermila Acuna - Last Filed: 07/13/19 13:31> Discharge Date and Diagnosis Date of Admission: 07/11/19 Date of Discharge: 07/13/19 - Primary Discharge Diagnosis 1. Sepsis secondary to bilateral Streptococcus pneumo community-acquired pneumonia 2. Hypovolemic hyponatremia, secondary to dehydration 3. Type 2 diabetes mellitus 4. Hypertension 5. Hyperlipidemia 6. Depression 7. Tobacco dependence - Secondary Discharge Diagnosis Chronic Problems HTN (hypertension) (Chronic) Tobacco dependence (Chronic) HLD (hyperlipidemia) (Chronic) Type 2 diabetes mellitus (Chronic) Depression (Chronic) Hospital Course and Treatment Imaging Results: Diagnostic Data Chest X-Ray 07/11/19 15:55 IMPRESSION: Bibasilar infiltrates. Electronically Signed: Musa Leyva DO at 16:15 EST Tel [phone], Service support , Operations: None Procedures: None Summary of Care Provided: The patient is a 58 year old F admitted 07/11/2019 due to shortness of breath, cough, fever and chills. 1. Sepsis secondary to bilateral strep pneumo community-acquired pneumonia- CXR with BL infiltrates. Afebrile. No white count. O2 stable on RA. Tachycardic and tachypneic on admission. Lactic acid 3.3 on admission, repeat normal. IV azithromycin and IV Rocephin. Urine antigen positive for strep pneumo. Unable to send sputum for culture. Patient completed IV azithromycin x3 doses. Discharge on Augmentin 875 mg p.o. twice daily for 7 days. Discharged butyryl inhaler as needed for shortness of breath. Patient has extensive smoking history. Suspect underlying COPD. Recommend follow up with pulmonary medicine at [facility] for formal evaluation. Discharged on prednisone 40 mg x 5 days given wheezing on assessment. Respiratory panel negative. Follow-up with primary care provider in 1 week. Follow-up with pulmonary medicine in 1 to 2 weeks. 2. Hypovolemic hyponatremia, secondary to dehydration-improved with IV fluids. Sodium 125 on admission, 130 at discharge. Recommend repeat BMP in 1 week by primary care provider. If sodium remains low, recommend discontinuing HCTZ going forward. 3. Type 2 diabetes mellitus- Hemoglobin A1c 8.9%. Continue home oral regimen. 4. Hypertension-stable, continue lisinopril, metoprolol. HCTZ held during admi ssion. 5. Hyperlipidemia- continue statin. 6. Depression- continue celexa. 7. Tobacco dependence- encouraged cessation. General: Alert, Oriented x3, Cooperative HEENT: Atraumatic, PERRLA, EOMI, Normocephalic Oral: Dry Mucosa Neck: Supple, No JVD, Negative Carotid Bruits Lungs: Diminished, Rhonchi, Tachypneic, Wheezes- significantly improved. Cardiovascular: Regular rate, Regular Rhythm, Normal S1, Normal S2, No murmurs Abdomen: Bowel Sounds Present, Soft, Non Tender, Non-Distended Extremities: No clubbing, No cyanosis, No edema, Capillary Refill Less than 3 Seconds Skin: No rashes, No breakdown Musculoskeletal: No Tenderness to Palpation of Joints or Extremities Neurological: Cranial nerves II-XII grossly intact, Neuro grossly intact Psych/Mental Status: Normal Affect, Appropriate Patient seen and examined prior to discharge. Physical assessment as noted above. Patient is stable for discharge with follow up recommendations as noted above. This patient was seen by JULIO Hyman under the supervision of Dr. Santos. - Physical Exam Vitals/I&O's: Vital Signs Temp Pulse Resp BP Pulse Ox 97.3 F L 88 18 160/92 H 94 07/13/19 13:05 07/13/19 13:05 07/13/19 13:05 07/13/19 13:05 07/13/19 13:05 Oxygen Delivery Method Room Air Weight: 188 lb 3.2 oz Body Mass Index (BMI) 34.4 Intake and Output for Last 24 Hours 07/11/19 07/12/19 07/13/19 23:59 23:59 23:59 Intake Total 1545 / 1905 5182.5 / 5182.5 3020 / 3020 Output Total 2440 / 2440 300 / 300 Balance 1545 / 1355 2742.5 / 2742.5 2720 / 2720 Microbiology Past 72 Hours 07/11/19 23:40 Mucosa - Nasopharyngeal Respiratory Panel (PCR) - Final 07/11/19 23:23 Urine, Clean Catch Legionella Antigen - Final 07/11/19 23:23 Urine, Clean Catch Streptococcus pneumoniae Antigen (M - Final Streptococcus pneumonia Ag 07/11/19 14:54 Mucosa - Nasopharyngeal Influenza Types A,B Direct FA (ROGE) - Final Laboratory Results 07/12/19 15:51: POC Glucose 285 H 07/12/19 21:18: POC Glucose 300 H 07/13/19 06:10: Sodium 130 L, Potassium 3.5, Chloride 100, Carbon Dioxide 19.0 L , Anion Gap 11, BUN 25 H, Creatinine 0.54 L, Estim Creat Clear Calc 90.91, Est GFR (MDRD) Af Amer 149, Est GFR (MDRD) Non-Af 123, BUN/Creatinine Ratio 46.2 H, Glucose 328 H, Calcium 8.3 L 07/13/19 06:42: POC Glucose 329 H 07/13/19 10:34: POC Glucose 334 H Current Medications Acetaminophen (Tylenol) 650 mg PO Q6H PRN PRN PRN Reason: Pain Score 1-3/Temp > 100.7 F Last Admin: 07/13/19 10:38 Dose: 650 mg Documented by: Albuterol Sulfate (Ventolin Aerosols) 2.5 mg INHALATION Q2H PRN PRN PRN Reason: SOB/Wheezing Albuterol/Ipratropium (Duoneb) 3 ml INHALATION Q4H.RT [facility] Last Admin: 07/13/19 11:49 Dose: 3 ml Documented by: Aspirin (Ecotrin) 81 mg PO DAILY@0800 [facility] Last Admin: 07/13/19 08:32 Dose: 81 mg Documented by: Atorvastatin Calcium (Lipitor) 5 mg PO QHS [facility] Last Admin: 07/12/19 21:13 Dose: 5 mg Documented by: Citalopram Hydrobromide (Celexa) 10 mg PO DAILY [facility] Last Admin: 07/13/19 08:33 Dose: 10 mg Documented by: Dextrose (D50w Syringe) 0 gm IV X1 PRN; Protocol PRN Reason: Hypoglycemia Enoxaparin Sodium (Lovenox) 40 mg SC DAILY [facility] Last Admin: 07/13/19 08:33 Dose: 40 mg Documented by: [facility]) [facility] Last Admin: 07/13/19 08:32 Dose: 4 mg Documented by: Glucagon () 1 mg IM .X1 PRN PRN Reason: Hypoglycemia Guaifenesin (Robitussin) 20 ml PO Q4H PRN PRN PRN Reason: COUGH Last Admin: 07/12/19 01:10 Dose: 20 ml Documented by: Azithromycin 500 mg/ Dextrose 255 mls @ 250 mls/hr IV Q24 [facility] Stop: 07/17/19 10:01 Last Infusion: 07/13/19 11:58 Dose: Infused Documented by: Ceftriaxone Sodium 2 gm/ (Sodium Chloride) 50 mls @ 100 mls/hr IV Q24 [facility] Stop: 07/19/19 10:01 Last Infusion: 07/13/19 10:01 Dose: Infused Documented by: Sodium Chloride () 1,000 mls @ 150 mls/hr IV .Q6H40M [facility] Last Infusion: 07/13/19 12:00 Dose: 150 mls/hr Documented by: Insulin Human Lispro (Humalog Kwikpen (Bkc)) 0 unit SC [facility]; Protocol Last Admin: 07/13/19 10:37 Dose: 8 units Documented by: Lisinopril (Zestril) 40 mg PO DAILY [facility] Last Admin: 07/13/19 08:34 Dose: 40 mg Documented by: Methylprednisolone (Solu-Medrol) 40 mg IV BID [facility] Last Admin: 07/13/19 08:34 Dose: 40 mg Documented by: Metoprolol Succinate (Toprol Xl (Beta Yi)) 200 mg PO DAILY [facility] Last Admin: 07/13/19 08:34 Dose: 200 mg Documented by: Nicotine (Nicoderm Cq (Pbkc)) 14 mg TRANSDERM. DAILY [facility] Last Admin: 07/13/19 08:37 Dose: Not Given Documented by: Nutritional Formula (Lactose Free) (Glucerna Shake) 120 ml PO 4X/DAY [facility] Last Admin: 07/13/19 13:16 Dose: Not Given Documented by: Ondansetron HCl (Zofran) 4 mg IV Q8H PRN PRN PRN Reason: NAUSEA/VOMITING Sodium Chloride () 10 - 40 ml IV UD PRN PRN Reason: SALINE FLUSH Discharge Diet: Low fat/ Low Cholesterol, Carb Control Diet Discharge Activity: Return to Normal Activity Call your doctor if you observe: Shortness of breath, Dizziness, Fainting spells, Chest pain Home Medications: Medications to take at Discharge Citalopram [Celexa] 10 mg PO DAILY 04/15/18 Metformin HCl [Glucophage Xr] 1,500 mg PO DAILY 04/15/18 Simvastatin [Zocor] 10 mg PO QHS 04/15/18 Aspirin E.C. [Ecotrin] 81 mg PO DAILY@0800 07/11/19 Glimepiride 4 mg PO DAILY 07/11/19 Hydrochlorothiazide [Hctz] 25 mg PO DAILY 07/11/19 Lisinopril 40 mg PO DAILY 07/11/19 Metoprolol Succinate [Toprol Xl] 100 mg PO DAILY 07/11/19 Metoprolol Succinate [Toprol Xl] 200 mg PO DAILY 07/11/19 Albuterol Inhaler [Ventolin Hfa] 1 - 2 puff INHALATION Q4H PRN PRN #1 inhaler 07/13/19 Amox/Clavulanate Tablet [Augmentin Tablet] 875 mg PO Q12H #14 tab 07/13/19 Prednisone 40 mg PO DAILY 5 Days #10 tab 07/13/19 Following Prescrptions Were Given to Patient: Amox/Clavulanate Tablet [Augmentin Tablet] 875 mg PO Q12H #14 tab Transmission Status: Received by [id number] Prednisone 40 mg PO DAILY 5 Days #10 tab Transmission Status: Received by [id number] Albuterol Inhaler [Ventolin Hfa] 1 - 2 puff INHALATION Q4H PRN PRN #1 inhaler PRN Reason: Shortness Of Breath Transmission Status: Received by [id number] Primary Care Physician: Remi Toth [Primary Care Provider] - Please follow up with your Primary Care Physician in: 1 Week Please Follow Up With: Chavez Solorzano MD - Or Dr. Monique When: Call to establish with pulmonary medicine Disposition: Home Minutes spent on discharge:: 35 Patient Condition:: Stable Medical Necessity - Tobacco Use Smoking Status: Current every day smoker Tobacco Use: Cigarettes Meaningful Use Info Meaningful Use Diagnoses (Choose all that apply): None applicable <Ace Santos - Last Filed: 07/13/19 15:16> Discharge Date and Diagnosis - Secondary Discharge Diagnosis Chronic Problems HTN (hypertension) (Chronic) Tobacco dependence (Chronic) HLD (hyperlipidemia) (Chronic) Type 2 diabetes mellitus (Chronic) Depression (Chronic) Hospital Course and Treatment Summary of Care Provided: [] This patient was seen in conjunction with Hermila PORTER. I have independently interviewed and examined the patient and reviewed pertinent history, examination findings, laboratory and plan of management. I have reviewed the note and agree with the documented findings with the few additional points. In brief, patient is a 58-year-old female with history of chronic smoking was admitted with cough, bilateral pleuritic chest pain and shortness of breath for 4 days prior to admission. Chest x-ray shows bilateral lower lobe infiltrates. Patient was tachypneic and tachycardic, lactic acid 3.3 on admission. Patient was empirically started on IV ceftriaxone and Zithromax. On bronchodilator. Urinary antigen is positive of Streptococcus. Therefore Streptococcus bilateral lower lobe community acquired pneumonia. Patient is di scharged on Augmentin for 7 days. Patient completed 3 days of IV Zithromax. It seems patient has possible undiagnosed COPD with extensive smoking history. On 07/13: Patient shortness of breath and cough is much better. Patient also had hypotonic hypovolemic hyponatremia and is on normal saline. Sodium showed improvement from 125-1 30. HCTZ on hold. Low BMP in 1 week with PCP and was still low, can discontinue HCTZ. Other comorbidities as mentioned above Discharge medication reconciliation done. Discharge follow-up instructions completed. Discharge process discussed with the patient and all questions were answered to patient's satisfaction.. Total time spent, exact 35 minutes on discharge meds reconciliation, examination, review of imaging and blood test and discussion with the patient on follow-up instructions. I have discussed my assessment with [employer] SUPERVISORHermila and orders have been reviewed. Objective: Seen and examined. Patient shortness of breath is much better. Patient wants to go home. Patient bilateral lateral chest pain has resolved. No fever or chills. - Physical Exam Vitals/I&O's: Vital Signs Temp Pulse Resp BP Pulse Ox 97.3 F L 88 18 160/92 H 94 07/13/19 13:05 07/13/19 13:05 07/13/19 13:05 07/13/19 13:05 07/13/19 13:05 Oxygen Delivery Method Room Air Weight: 188 lb 3.2 oz Body Mass Index (BMI) 34.4 Intake and Output for Last 24 Hours 07/11/19 07/12/19 07/13/19 23:59 23:59 23:59 Intake Total 1545 / 1905 5182.5 / 5182.5 3320 / 3320 Output Total 2440 / 2440 300 / 300 Balance 1545 / 1355 2742.5 / 2742.5 3020 / 3020 General: Alert, Oriented x3, Cooperative HEENT: Atraumatic, PERRLA, EOMI, Normocephalic Neck: Supple, No JVD, Negative Carotid Bruits Lungs: No wheeze, No rales, Diminished, Rhonchi Cardiovascular: Regular rate, Normal S1, Normal S2, No murmurs Abdomen: Bowel Sounds Present, Soft, Non Tender, Non-Distended Extremities: No edema, Capillary Refill Less than 3 Seconds Skin: No rashes, No breakdown Musculoskeletal: No Tenderness to Palpation of Joints or Extremities, Arthritic Changes Neurological: Cranial nerves II-XII grossly intact, Deep Tendon Reflexes 2+/4 and Symmetrical, Neuro grossly intact Psych/Mental Status: Normal Affect, Appropriate Microbiology Past 72 Hours 07/11/19 23:40 Mucosa - Nasopharyngeal Respiratory Panel (PCR) - Final 07/11/19 23:23 Urine, Clean Catch Legionella Antigen - Final 07/11/19 23:23 Urine, Clean Catch Streptococcus pneumoniae Antigen (M - Final Streptococcus pneumonia Ag 07/11/19 14:54 Mucosa - Nasopharyngeal Influenza Types A,B Direct FA (ROGE) - Final Laboratory Results 07/12/19 15:51: POC Glucose 285 H 07/12/19 21:18: POC Glucose 300 H 07/13/19 06:10: Sodium 130 L, Potassium 3.5, Chloride 100, Carbon Dioxide 19.0 L , Anion Gap 11, BUN 25 H, Creatinine 0.54 L, Estim Creat Clear Calc 90.91, Est GFR (MDRD) Af Amer 149, Est GFR (MDRD) Non-Af 123, BUN/Creatinine Ratio 46.2 H, Glucose 328 H, Calcium 8.3 L 07/13/19 06:42: POC Glucose 329 H 07/13/19 10:34: POC Glucose 334 H Code Visit Inpatient E&M: 97537 Disch Hosp
== END 2019-07-13 14:57 | disposition home or self-care (01) | DRG 871 ==
LOC: ED 14:59 → PCU 16:54
PROVIDERS: Nurse Practitioner Family; Admitting Provider Student in an Organized Health Care Education/Training Program; Emergency Provider Emergency Medicine; Family Provider Family Medicine; PCP Family Medicine; Visit Provider Internal Medicine
DX: A41.9 Sepsis, unspecified organism (principal); J13 Pneumonia due to Streptococcus pneumoniae; E87.1 Hypo-osmolality and hyponatremia; E86.0 Dehydration; E11.9 Type 2 diabetes mellitus without complications; I10 Essential (primary) hypertension; E86.1 Hypovolemia; E78.5 Hyperlipidemia, unspecified; F32.9 Major depressive disorder, single episode, unspecified; F17.210 Nicotine dependence, cigarettes, uncomplicated; Z79.84 Long term (current) use of oral hypoglycemic drugs
CPT/HCPCS: 36415; 71046; 80048; 81001; 82962; 83036; 83605; 85025; 87040; 87449; 87633; 87804; 94640; 97802; 99285; 99406; J7030; J0696; J2405